=== PATIENT | male | born 1950 | race Caucasian/White ===

== ENCOUNTER 2018-08-27 12:57 | Outpatient (RCR) | payer MEDICARE, OTHER | END 2018-11-25 | disposition home or self-care (01) | LOC: ONC 12:57 | PROVIDERS: ATTEND Radiology Radiation Oncology | DX: C61 Malignant neoplasm of prostate (principal) | CPT/HCPCS: 76873; 99205 ==

== ENCOUNTER 2019-01-28 05:38 | Outpatient (CLI) | payer MEDICARE, OTHER ==
[~2019-01-28] VITALS: Ht 170.2 cm; Wt 88.0 kg
[2019-01-28] MEDS ORDERED: ATOR20TA66 PO (09:21)
[2019-01-28] MEDS ORDERED: LISI-552 PO (09:21)
[2019-01-28] MEDS ORDERED: ATEN25TA PO (09:21)
[2019-01-28] MEDS ORDERED: NIAC500T24 PO (09:21)
[2019-01-28] MEDS ORDERED: ASPI-586 PO (09:21)
== END 2019-01-28 09:32 | disposition home or self-care (01) ==
LOC: PREOP 05:38
PROVIDERS: ATTEND Radiology Radiation Oncology
DX: Z01.818 Encounter for other preprocedural examination (principal)

== ENCOUNTER 2019-02-04 10:33 | Day surgery (SDC) | payer MEDICARE, BC ==
[~2019-02-04] VITALS: Ht 170.2 cm; Wt 88.0 kg
[~2019-02-04 10:33] MED LIST: ASPI-586 PO; ATEN25TA PO; ATOR20TA66 PO; LISI-552 PO; NIAC500T24 PO
[2019-02-04 10:45] VITALS: BP 104/77
[2019-02-04] MEDS ORDERED: MIDAZOLAM 2 MG/2 ML (VERSED) VIAL ONE (11:29)
[2019-02-04] MEDS ORDERED: SEVOFLURANE (ULTANE) 15 ML INHAL SOLN ONE ×2 (11:29→13:05)
[2019-02-04] MEDS ORDERED: DEXAMETHASONE 10 MG/ML (DECADRON) 1 ML VIAL ONE (11:29)
[2019-02-04] MEDS ORDERED: proPOfol 200 MG/20 ML (DIPRIVAN) VIAL IV ONE (11:29)
[2019-02-04] MEDS ORDERED: fentaNYL INJECTION 100 MCG/2 ML AMP ONE (11:29)
[2019-02-04] MEDS ORDERED: LIDOCAINE PF 2% 5 ML (XYLOCAINE) VIAL ONE (11:29)
[2019-02-04] MEDS ORDERED: ONDANSETRON 4 MG/2 ML (SDV) Z0FRAN ONE (11:29)
[2019-02-04] MEDS ORDERED: LACTATED RINGERS 1,000 ML IV PRN (11:35)
[2019-02-04] MEDS ORDERED: ceFAZolin INJECTION 1,000 MG in WATER (STERILE) FOR INJECTION 10 ML IV ONE (11:45)
[2019-02-04] MEDS ORDERED: PHENYLEPHRINE 100 MCG/ML 10 ML (ANESTHESIA) SYR ONE (13:00)
[2019-02-04 14:10] VITALS: BP 102/71
[2019-02-04 14:40] VITALS: BP 94/51
[2019-02-04] MEDS ORDERED: CIPR-225 PO (15:26)
[2019-02-04 15:45] VITALS: BP 94/51
--- NOTE | 2019-02-04 15:51 | Progress Note-Pre Operative ---
Pre-Operative Progress Note H&P Reviewed The H&P was reviewed, patient examined and no changes noted. Date Seen by Provider: Feb 04, 2019 Time Seen by Provider: 12:17 Date H&P Reviewed: Feb 04, 2019 Time H&P Reviewed: 12:17 Pre-Operative Diagnosis: Prostate cancer cT1c, PSA 15.5, [place] 7 (3+4) ARGELIA DIAS MD Feb 04, 2019 15:50
--- NOTE | 2019-02-04 15:58 | Progress Note-Post Operative ---
Post-Operative Progess Note Surgeon (s)/[employer] (s) Surgeon Madelyn GALE MD [employer]: ARGELIA DIAS MD Pre-Operative Diagnosis Prostate cancer cT1c, PSA 15.5, [place] 7 (3+4) Post-Operative Diagnosis Same as pre-op Procedure & Operative Findings Date of Procedure 02/04/19 Procedure Performed/Findings (1) Fiducial gold seed markers placement (2) Injection of biodegradable hydrogel prostate-rectal spacer utilizing the [employer] system Anesthesia Type General Estimated Blood Loss Estimated blood loss (mL): Minimal Specimens/Packing Specimens Removed None Packing: None ARGELIA DIAS MD Feb 04, 2019 15:58
--- NOTE | 2019-02-04 16:02 | Discharge Inst-Simple/Standard ---
Discharge Inst-Standard Discharge Medications New, Converted or Re-Newed RX: Other (Patient has Cipro at home) Patient Instructions/Follow Up Plan of Care/Instructions/FU: Patient to be called by [facility] with appointment date/time for ct simulation/MRI Activity as Tolerated: Yes Discharge Diet: No Restrictions Other Inst to Patient Take Cipro as directed by radiation oncology paperwork. ARGELIA DIAS MD Feb 04, 2019 16:02
== END 2019-02-04 15:45 | disposition home or self-care (01) ==
LOC: SDC 10:33
PROVIDERS: ATTEND Specialist
DX: C61 Malignant neoplasm of prostate (principal); Z11.2 Encounter for screening for other bacterial diseases; I10 Essential (primary) hypertension; I25.10 Atherosclerotic heart disease of native coronary artery without angina pectoris; E78.00 Pure hypercholesterolemia, unspecified; E78.5 Hyperlipidemia, unspecified; Z95.5 Presence of coronary angioplasty implant and graft; Z80.42 Family history of malignant neoplasm of prostate; Z80.3 Family history of malignant neoplasm of breast; Z87.891 Personal history of nicotine dependence; Z79.82 Long term (current) use of aspirin; Z79.899 Other long term (current) drug therapy
CPT/HCPCS: 87081

== ENCOUNTER 2019-02-04 11:19 | Outpatient (RCR) | payer MEDICARE, BC ==
[2019-02-04] MEDS ORDERED: ONDANSETRON 4 MG/2 ML (SDV) Z0FRAN IVP PRN (13:30)
[2019-02-04] MEDS ORDERED: HYDROmorphone 2 MG/ML VIAL (DILAUDID) IV ONE (13:30)
[2019-02-04] MEDS ORDERED: CIPR-225 PO (15:26)
== END 2019-05-05 | disposition home or self-care (01) ==
LOC: ONC 11:19
PROVIDERS: ATTEND Radiology Radiation Oncology
DX: C61 Malignant neoplasm of prostate (principal)